=== PATIENT | female | born 1960 | race Caucasian/White ===

== ENCOUNTER 2016-07-21 13:56 | Emergency (ER) | payer OTHER | END 2016-07-21 16:18 | disposition home or self-care (01) | LOC: FER 13:56 | DX: I80.01 Phlebitis and thrombophlebitis of superficial vessels of right lower extremity (principal); I10 Essential (primary) hypertension; Z88.0 Allergy status to penicillin; Z79.899 Other long term (current) drug therapy | CPT/HCPCS: 93971 ==